=== PATIENT | male | born 1950 | race African-American/Black ===

== ENCOUNTER 2017-03-26 05:54 | Emergency (ER) | payer MEDICARE, MEDICAID, OTHER ==
[~2017-03-26] VITALS: Ht 180.3 cm; Wt 129.0 kg
[2017-03-26] MEDS ORDERED: KETOROLAC 30MG/ML VIAL IM ONE (07:15)
[2017-03-26] MEDS ORDERED: CYCLOBENZAPRINE 10MG TABLET PO ONE ×2 (07:15→07:45)
[2017-03-26 08:33] VITALS: BP 110/72
== END 2017-03-26 08:34 | disposition home or self-care (01) ==
LOC: ER 05:54
DX: G89.29 Other chronic pain (principal); K59.00 Constipation, unspecified; I10 Essential (primary) hypertension; R15.9 Full incontinence of feces; J45.909 Unspecified asthma, uncomplicated; Z85.46 Personal history of malignant neoplasm of prostate; Z88.0 Allergy status to penicillin; Z90.49 Acquired absence of other specified parts of digestive tract; Z98.890 Other specified postprocedural states
CPT/HCPCS: 74000; 96372; 99283; J1885; J7030

== ENCOUNTER 2018-04-21 21:40 | Inpatient (IN) | payer MEDICARE, MEDICAID ==
[~2018-04-21] VITALS: Ht 180.3 cm; Wt 127.0 kg
[~2018-04-21 21:40] MED LIST: ADVIAR; [UNRECOGNIZED DRUG - OTHER]
[2018-04-21] MEDS ORDERED: ASPIRIN 325MG EC TABLET PO ONE (22:15)
[2018-04-22] MEDS ORDERED: IOHEXOL-350 100 ML BOTTLE ONE
[2018-04-22 00:24] LABS: BASOPHILS % 0.2 % (0.0-2.0); HEMATOCRIT. 32.7 % (42.0-52.0); HEMOGLOBIN. 10.9 g/dL (14.0-18.0); LYMPHOCYTES % 16.4 % (20.0-50.0); MEAN CORPUSCULAR HEMOGLOBIN 29.5 pg (28.0-32.0); MEAN CORPUSCULAR VOLUME 88.3 fL (80.0-94.0); MEAN PLATELET VOLUME 6.9 fl (7.4-10.4); MONOCYTES % 8.8 % (2.0-8.0); NEUTROPHILS % 73.6 % (40.0-76.0); PLATELET 393 x1000/uL (130-400); RED CELL DISTRIBUTION WIDTH 14.8 % (11.6-14.6)
[2018-04-22 00:33] LABS: CHLORIDE 101 mEq/L (98-107)
[2018-04-22 00:40] LABS: D-DIMER 3.47 mg/L FEU (<0.50); PARTIAL THROMBOPLASTIN TIME 25.2 sec (23.4-31.0); PROTHROMBIN TIME 10.2 sec (9.1-11.1)
[2018-04-22] MEDS ORDERED: NITROGLYCERIN OINT 1GM/INCH UDPKT TD ONE (02:15)
[2018-04-22] MEDS ORDERED: FUROSEMIDE 40MG/4ML VIAL IV ONE (02:15)
[2018-04-22] MEDS ORDERED: DOCUSATE SODIUM 100MG CAPSULE PO PRN (02:30)
[2018-04-22] MEDS ORDERED: ACETAMINOPHEN 325MG TABLET PO PRN (02:30)
[2018-04-22] MEDS ORDERED: MORPHINE SULFATE 4 MG/ML CPJ (NOT FOR IM USE) IV PRN (02:30)
[2018-04-22] MEDS ORDERED: ONDANSETRON HCL 4MG/2ML VIAL IV PRN (02:30)
[2018-04-22] MEDS ORDERED: IPRATROPIUM/ALBUTEROL 0.5-3(2.5)MG/3ML NEB INH PRN (02:30)
[2018-04-22] MEDS ORDERED: CLONIDINE 0.1MG TABLET PO PRN (02:30)
[2018-04-22] MEDS ORDERED: ONDANSETRON 4MG ODT PO PRN (05:15)
[2018-04-22 05:36] VITALS: BP 119/69
[2018-04-22 08:00] VITALS: BP 159/79
[2018-04-22] MEDS: AMLODIPINE 10MG TABLET PO SCH (08:32)
[2018-04-22] MEDS: ENOXAPARIN 30MG/0.3ML SYR SUBCUT SCH ×2 (08:32→20:45)
[2018-04-22] MEDS ORDERED: ENOXAPARIN 40MG/0.4ML SYR SUBCUT SCH (09:00)
[2018-04-22 09:21] LABS: CREATINE KINASE 508 IU/L (39-308)
[2018-04-22 09:22] LABS: CREATINE KINASE MB FRACTION 5.9 ng/mL (0.5-3.6)
[2018-04-22 12:00] VITALS: BP 131/73
[2018-04-22 13:24] LABS: BG BASE EXCESS 6.1 mmol/L (-2.0-2.0); BG CARBOXYHEMOGLOBIN 0.8 % (0.5-1.5); BG FRACTION INSPIRED OXYGEN 21; BG HCO3 ACT 30.4 mmol/L (22.0-26.0); BG METHEMOGLOBIN 0.1 % (0.0-1.5); BG OXYHEMOGLOBIN 95.1 % (94.0-97.0); BG PCO2 42.8 mmHg (35.0-45.0); BG PH 7.469 (7.350-7.450); BG PO2 80.7 mmHg (75.0-100.0); BG SAMPLE SITE LEFT BRACHIAL; BG TOTAL HEMOGLOBIN 11.8 g/dL (12.0-18.0); BG VENT MODE ROOM AIR
[2018-04-22] MEDS: IPRATROPIUM/ALBUTEROL 0.5-3(2.5)MG/3ML NEB HHN SCH ×2 (15:34→21:34)
[2018-04-22 15:52] LABS: CREATINE KINASE 447 IU/L (39-308)
[2018-04-22 15:53] LABS: CREATINE KINASE MB FRACTION 4.9 ng/mL (0.5-3.6)
[2018-04-22 16:00] VITALS: BP 114/64
[2018-04-22] MEDS ORDERED: METR500T PO (16:33)
[2018-04-22] MEDS ORDERED: LEVO500T89 MT (16:33)
[2018-04-22] MEDS ORDERED: RANI300T4 MT (16:35)
[2018-04-22] MEDS ORDERED: AMLO10TA80 MT (16:35)
[2018-04-22] MEDS: MONTELUKAST SODIUM 10MG TABLET PO SCH (18:02)
[2018-04-22 20:00] VITALS: BP 137/85
[2018-04-22] MEDS: FAMOTIDINE 20MG TABLET PO SCH (20:44)
[2018-04-22] MEDS: BUDESONIDE 0.5MG/2ML NEB HHN SCH (21:33)
[2018-04-23] VITALS: BP 137/80
[2018-04-23] MEDS: IPRATROPIUM/ALBUTEROL 0.5-3(2.5)MG/3ML NEB HHN SCH ×5 (02:35→21:32)
[2018-04-23 04:00] VITALS: BP 149/79
[2018-04-23 06:50] LABS: BASOPHILS % 0.5 % (0.0-2.0); EOSINOPHILS % 1.4 % (0.0-5.0); HEMATOCRIT. 35.1 % (42.0-52.0); HEMOGLOBIN. 11.8 g/dL (14.0-18.0); LYMPHOCYTES % 16.4 % (20.0-50.0); MEAN CORPUSCULAR HEMOGLOBIN 29.9 pg (28.0-32.0); MEAN CORPUSCULAR VOLUME 88.9 fL (80.0-94.0); MEAN PLATELET VOLUME 7.2 fl (7.4-10.4); MONOCYTES % 6.9 % (2.0-8.0); NEUTROPHILS % 74.8 % (40.0-76.0); PLATELET 414 x1000/uL (130-400); RED BLOOD CELL COUNT 3.95 mill/uL (4.7-6.1); RED CELL DISTRIBUTION WIDTH 15.2 % (11.6-14.6)
[2018-04-23 07:01] LABS: CHLORIDE 100 mEq/L (98-107)
[2018-04-23 07:29] LABS: LDL CHOLESTEROL 63 mg/dL (5-100)
[2018-04-23 07:30] LABS: HDL CHOLESTEROL 33 mg/dL (40-59)
[2018-04-23 08:00] VITALS: BP 136/79
[2018-04-23] MEDS: FAMOTIDINE 20MG TABLET PO SCH ×2 (08:13→20:30)
[2018-04-23] MEDS: AMLODIPINE 10MG TABLET PO SCH (08:13)
[2018-04-23] MEDS: ENOXAPARIN 30MG/0.3ML SYR SUBCUT SCH ×2 (08:14→20:33)
[2018-04-23] MEDS: BUDESONIDE 0.5MG/2ML NEB HHN SCH ×2 (10:05→21:31)
[2018-04-23 10:13] LABS: BG BASE EXCESS 4.1 mmol/L (-2.0-2.0); BG CARBOXYHEMOGLOBIN 0.6 % (0.5-1.5); BG DEOXYHEMOGLOBIN 5.2 % (0.0-5.0); BG FRACTION INSPIRED OXYGEN 21; BG HCO3 ACT 27.9 mmol/L (22.0-26.0); BG METHEMOGLOBIN 0.2 % (0.0-1.5); BG OXYGEN SATURATION 94.8 % (92.0-98.5); BG PCO2 38.8 mmHg (35.0-45.0); BG PH 7.474 (7.350-7.450); BG PO2 72.2 mmHg (75.0-100.0); BG SAMPLE SITE RIGHT RADIAL; BG TOTAL HEMOGLOBIN 12.4 g/dL (12.0-18.0); BG VENT MODE ROOM AIR
[2018-04-23 11:46] LABS: T4 FREE 1.49 ng/dL (0.76-1.46)
[2018-04-23 12:00] VITALS: BP 130/62
[2018-04-23 16:00] VITALS: BP 128/65
[2018-04-23 16:01] LABS: CREATINE KINASE 262 IU/L (39-308)
[2018-04-23 16:02] LABS: CREATINE KINASE MB FRACTION 2.6 ng/mL (0.5-3.6)
[2018-04-23] MEDS: MONTELUKAST SODIUM 10MG TABLET PO SCH (17:11)
[2018-04-23] MEDS: HYDROCODONE/ACETAMINOPHEN 5/325MG TABLET PO PRN ×2 (17:11→22:35)
[2018-04-23 20:00] VITALS: BP 132/74
[2018-04-23 23:27] LABS: CREATINE KINASE 226 IU/L (39-308)
[2018-04-23 23:28] LABS: CREATINE KINASE MB FRACTION 2.6 ng/mL (0.5-3.6)
[2018-04-24] VITALS: BP 130/70
[2018-04-24] MEDS: IPRATROPIUM/ALBUTEROL 0.5-3(2.5)MG/3ML NEB HHN SCH ×2 (03:08→10:04)
[2018-04-24 04:00] VITALS: BP 118/79
[2018-04-24 07:00] LABS: CREATINE KINASE 196 IU/L (39-308)
[2018-04-24 07:01] LABS: CREATINE KINASE MB FRACTION 2.5 ng/mL (0.5-3.6)
[2018-04-24 08:00] VITALS: BP 126/83
[2018-04-24] MEDS: FAMOTIDINE 20MG TABLET PO SCH (09:10)
[2018-04-24] MEDS: ENOXAPARIN 30MG/0.3ML SYR SUBCUT SCH (09:13)
[2018-04-24] MEDS: AMLODIPINE 10MG TABLET PO SCH (09:13)
[2018-04-24] MEDS: BUDESONIDE 0.5MG/2ML NEB HHN SCH (10:03)
[2018-04-24 10:39] VITALS: BP 136/84
== END 2018-04-24 11:44 | disposition home or self-care (01) | DRG 189 ==
LOC: ER 21:40 → 6WST 04-22 01:10 → ENRESERV 04-22 04:02
PROVIDERS: ADMIT Hospitalist; ATTEND Hospitalist
DX: J96.00 Acute respiratory failure, unspecified whether with hypoxia or hypercapnia (principal); J45.901 Unspecified asthma with (acute) exacerbation; J90 Pleural effusion, not elsewhere classified; E66.9 Obesity, unspecified; I10 Essential (primary) hypertension; K21.9 Gastro-esophageal reflux disease without esophagitis; Z90.79 Acquired absence of other genital organ(s); Z85.46 Personal history of malignant neoplasm of prostate; Z82.49 Family history of ischemic heart disease and other diseases of the circulatory system; Z90.49 Acquired absence of other specified parts of digestive tract; Z93.3 Colostomy status; Z88.0 Allergy status to penicillin; Z68.39 Body mass index [BMI] 39.0-39.9, adult; Z79.899 Other long term (current) drug therapy
CPT/HCPCS: 36415; 36600; 71045; 71275; 80053; 80061; 82375; 82550; 82553; 82805; 83036; 83690; 83880; 84439; 84443; 84484; 85025; 85379; 85610; 85730; 86850; 86870; 86900; 93005; 93306; 93970; 94640; 96374; 99285; J1650; J1940; J7620; J7626; Q9967

== ENCOUNTER → 2018-05-05 | Outpatient (CLI) | payer MEDICARE, MEDICAID ==
[~2018-05-05] MED LIST changes: -ADVIAR; +AMLO10TA80 MT; +BARIUM SULFATE 450ML ORAL SUSP ONE; +IOHEXOL-300 50 ML BOTTLE IV ONE; +IOHEXOL-350 100 ML BOTTLE ONE; +LEVO500T89 MT; +METR500T PO; +RANI300T4 MT; -[UNRECOGNIZED DRUG - OTHER]
== END | disposition home or self-care (01) ==
LOC: CT 09:17
PROVIDERS: ATTEND Surgery
DX: K81.0 Acute cholecystitis (principal); E66.9 Obesity, unspecified; I10 Essential (primary) hypertension; Z85.46 Personal history of malignant neoplasm of prostate; R06.02 Shortness of breath; J44.9 Chronic obstructive pulmonary disease, unspecified; Z79.899 Other long term (current) drug therapy; Z90.49 Acquired absence of other specified parts of digestive tract; Z68.41 Body mass index [BMI] 40.0-44.9, adult; K21.9 Gastro-esophageal reflux disease without esophagitis; Z88.0 Allergy status to penicillin
CPT/HCPCS: 47531; 74177; Q9967

== ENCOUNTER → 2018-05-27 | Outpatient (CLI) | payer MEDICARE, MEDICAID ==
[~2018-05-27] MED LIST changes: -BARIUM SULFATE 450ML ORAL SUSP ONE; -IOHEXOL-300 50 ML BOTTLE IV ONE; -IOHEXOL-350 100 ML BOTTLE ONE
== END | disposition home or self-care (01) ==
LOC: RAD 13:01
PROVIDERS: ATTEND Family Medicine
DX: Z01.818 Encounter for other preprocedural examination (principal); K80.80 Other cholelithiasis without obstruction
CPT/HCPCS: 71045

== ENCOUNTER 2018-06-07 05:21 | Day surgery (SDC) | payer MEDICARE, MEDICAID ==
[~2018-06-07] VITALS: Ht 180.3 cm; Wt 127.5 kg
[2018-06-07] MEDS ORDERED: LACTATED RINGERS 1,000 ML IV SCH (05:45)
[2018-06-07 06:16] LABS: CLARITY URINE CLEAR (CLEAR); COLOR URINE YELLOW (YELLOW); KETONES URINE NEGATIVE (NEGATIVE); LEUKOCYTE ESTERASE URINE NEGATIVE (NEGATIVE); NITRITE URINE NEGATIVE (NEGATIVE); OCCULT BLOOD URINE NEGATIVE (NEGATIVE); PROTEIN URINE NEGATIVE (NEGATIVE); SPECIFIC GRAVITY URINE 1.014 (1.005-1.030); UROBILINOGEN URINE 0.2 E.U./dL (0.2-1.0)
[2018-06-07] MEDS ORDERED: BUPIVACAINE HCL 0.5% (5MG/ML) 50ML ONE (06:30)
[2018-06-07] MEDS ORDERED: SKIN ADHESIVE 0.7 GM EA TOP ONE ×3 (06:30→09:00)
[2018-06-07] MEDS ORDERED: CLINDAMYCIN 900 MG in DEXTROSE 5% WATER 50 ML IV SCH (07:00)
[2018-06-07] MEDS ORDERED: PROPOFOL 200MG/20ML VIAL IV ONE ×2 (07:03→08:14)
[2018-06-07] MEDS ORDERED: FENTANYL CITRATE/PF 50MCG/ML 5ML VIAL ONE (07:04)
[2018-06-07] MEDS ORDERED: GLYCOPYRROLATE 0.2 MG/ML 2ML VIAL ONE (07:05)
[2018-06-07] MEDS ORDERED: NEOSTIGMINE METHYLSULFATE 1MG/ML 10 ML VIAL ONE (07:06)
[2018-06-07] MEDS ORDERED: NAPR220T66 PO (07:56)
[2018-06-07] MEDS ORDERED: ONDANSETRON HCL 4MG/2ML INJ IV PRN (09:15)
[2018-06-07] MEDS ORDERED: FENTANYL CITRATE/PF 50MCG/ML 2ML VIAL IV PRN (09:15)
== END 2018-06-07 10:15 | disposition home or self-care (01) ==
LOC: OR 05:21
PROVIDERS: ATTEND Surgery
DX: K80.10 Calculus of gallbladder with chronic cholecystitis without obstruction (principal); J44.9 Chronic obstructive pulmonary disease, unspecified; I10 Essential (primary) hypertension; K21.9 Gastro-esophageal reflux disease without esophagitis; J45.909 Unspecified asthma, uncomplicated; E66.9 Obesity, unspecified; Z68.41 Body mass index [BMI] 40.0-44.9, adult; Z85.46 Personal history of malignant neoplasm of prostate; Z79.899 Other long term (current) drug therapy; Z90.49 Acquired absence of other specified parts of digestive tract; Z88.0 Allergy status to penicillin
CPT/HCPCS: 47562; 81003; 88300; 88304; G0168; J2710; J3010; J3490; J7120; J2704; J7060

== ENCOUNTER 2018-10-17 09:31 | Emergency (ER) | payer MEDICARE, MEDICAID, OTHER ==
[~2018-10-17] VITALS: Ht 180.3 cm; Wt 127.0 kg
[~2018-10-17 09:31] MED LIST changes: -LEVO500T89 MT; -METR500T PO; +NAPR220T66 PO
[2018-10-17 10:42] VITALS: BP 174/102
== END 2018-10-17 17:30 | disposition left against medical advice (07) ==
LOC: ER 09:52
DX: Z53.21 Procedure and treatment not carried out due to patient leaving prior to being seen by health care provider (principal)

== ENCOUNTER 2018-10-17 18:47 | Inpatient (IN) | payer MEDICARE, MEDICAID ==
[~2018-10-17] VITALS: Ht 180.3 cm; Wt 113.4 kg
[2018-10-17] MEDS ORDERED: ONDANSETRON HCL 4MG/2ML INJ IV STA (21:15)
[2018-10-17] MEDS ORDERED: ENALAPRIL 2.5MG/2ML VIAL 2ML IV ONE (21:15)
[2018-10-17 21:31] LABS: BASOPHILS % 0.4 % (0.0-2.0); CHLORIDE 105 mEq/L (98-107); EOSINOPHILS % 0.3 % (0.0-5.0); HEMATOCRIT. 47.6 % (42.0-52.0); HEMOGLOBIN. 15.9 g/dL (14.0-18.0); LYMPHOCYTES % 16.6 % (20.0-50.0); MEAN CORPUSCULAR HEMOGLOBIN 29.3 pg (28.0-32.0); MEAN CORPUSCULAR VOLUME 87.5 fL (80.0-94.0); MEAN PLATELET VOLUME 7.9 fl (7.4-10.4); MONOCYTES % 7.2 % (2.0-8.0); NEUTROPHILS % 75.5 % (40.0-76.0); PLATELET 279 x1000/uL (130-400); RED BLOOD CELL COUNT 5.44 mill/uL (4.7-6.1); RED CELL DISTRIBUTION WIDTH 14.4 % (11.6-14.6)
[2018-10-17 21:36] LABS: PARTIAL THROMBOPLASTIN TIME 25.7 sec (23.4-31.0)
[2018-10-17 21:37] LABS: ETHANOL BLOOD < 10 mg/dL
[2018-10-17] MEDS ORDERED: MECLIZINE 25MG TABLET PO ONE (22:30)
[2018-10-17] MEDS ORDERED: MAGNESIUM/ALUMINUM HYDROXIDE/SIMETHICONE 30ML UDC PO PRN (23:30)
[2018-10-17] MEDS ORDERED: LORAZEPAM 2MG/ML CPJ IV PRN (23:30)
[2018-10-17] MEDS ORDERED: IPRATROPIUM/ALBUTEROL 0.5-3(2.5)MG/3ML NEB INH PRN (23:30)
[2018-10-17] MEDS ORDERED: HYDROCODONE/ACETAMINOPHEN 10/325MG TABLET PO PRN (23:30)
[2018-10-17] MEDS ORDERED: CLONIDINE 0.1MG TABLET PO PRN (23:30)
[2018-10-17] MEDS ORDERED: DOCUSATE SODIUM 100MG CAPSULE PO PRN (23:30)
[2018-10-17] MEDS ORDERED: HYDRALAZINE 20MG/ML VIAL IV PRN (23:30)
[2018-10-17] MEDS ORDERED: HYDROMORPHONE HCL/PF 2MG/ML CPJ IV PRN (23:30)
[2018-10-17] MEDS ORDERED: DIPHENHYDRAMINE 50MG/ML VIAL IV PRN (23:30)
[2018-10-17] MEDS ORDERED: ONDANSETRON HCL 4MG/2ML INJ IV PRN (23:30)
[2018-10-17] MEDS ORDERED: GUAIFENESIN 200MG/10ML SUGAR FREE UDC PO PRN (23:30)
[2018-10-17] MEDS ORDERED: ACETAMINOPHEN 325MG TABLET PO PRN (23:30)
[2018-10-17] MEDS ORDERED: NA PHOS,M-B/NA PHOS,DI-BA ENEMA 118ML PR PRN (23:30)
[2018-10-18] VITALS (7 sets, daily range): BP systolic 126–160; BP diastolic 66–85
[2018-10-18] MEDS: ASPIRIN 81MG EC TABLET PO SCH (11:24)
[2018-10-18] MEDS: SODIUM CHLORIDE 0.9% INJ 3ML FLUSH IVF SCH ×2 (14:53→21:17)
[2018-10-18 15:25] LABS: BASOPHILS % 0.3 % (0.0-2.0); EOSINOPHILS % 1.9 % (0.0-5.0); HEMATOCRIT. 43.2 % (42.0-52.0); HEMOGLOBIN. 14.6 g/dL (14.0-18.0); LYMPHOCYTES % 39.7 % (20.0-50.0); MEAN CORPUSCULAR HEMOGLOBIN 29.5 pg (28.0-32.0); MEAN CORPUSCULAR VOLUME 87.4 fL (80.0-94.0); MEAN PLATELET VOLUME 7.7 fl (7.4-10.4); MONOCYTES % 10.7 % (2.0-8.0); NEUTROPHILS % 47.4 % (40.0-76.0); PLATELET 257 x1000/uL (130-400); RED BLOOD CELL COUNT 4.95 mill/uL (4.7-6.1)
[2018-10-18 15:47] LABS: CHLORIDE 104 mEq/L (98-107)
[2018-10-18 15:55] LABS: CREATINE KINASE 186 IU/L (39-308); LDL CHOLESTEROL 141 mg/dL (5-100)
[2018-10-18 15:57] LABS: CREATINE KINASE 187 IU/L (39-308); CREATINE KINASE MB FRACTION 1.4 ng/mL (0.5-3.6); HDL CHOLESTEROL 42 mg/dL (40-59)
[2018-10-18 15:58] LABS: T4 FREE 1.12 ng/dL (0.76-1.46)
[2018-10-18] MEDS ORDERED: INFLUENZA VIRUS VACCINE(AFLURIA) 0.5ML SYR IM ONE (19:15)
[2018-10-18] MEDS: ENOXAPARIN 30MG/0.3ML SYR SUBCUT SCH (21:16)
[2018-10-19 00:17] VITALS: BP 102/59
[2018-10-19 00:19] VITALS: BP 141/68
[2018-10-19 03:16] LABS: CLARITY URINE CLEAR (CLEAR); COLOR URINE YELLOW (YELLOW); KETONES URINE NEGATIVE (NEGATIVE); LEUKOCYTE ESTERASE URINE NEGATIVE (NEGATIVE); NITRITE URINE NEGATIVE (NEGATIVE); OCCULT BLOOD URINE NEGATIVE (NEGATIVE); PH URINE 5.5 (4.5-8.0); PROTEIN URINE NEGATIVE (NEGATIVE); UROBILINOGEN URINE 0.2 E.U./dL (0.2-1.0)
[2018-10-19 03:39] LABS: *AMPHETAMINES SCREEN URINE NEGATIVE (NEGATIVE); *BARBITURATES SCREEN URINE NEGATIVE (NEGATIVE); *BENZODIAZEPINES SCREEN URINE NEGATIVE (NEGATIVE); *COCAINE SCREEN URINE NEGATIVE (NEGATIVE); CANNABINOID URINE SCREEN PRESUMTIVE POSITIVE (NEGATIVE); METHADONE URINE SCREEN NEGATIVE (NEGATIVE); OPIATES URINE SCREEN NEGATIVE (NEGATIVE); PHENCYCLIDINE URINE SCREEN NEGATIVE (NEGATIVE)
[2018-10-19 04:00] VITALS: BP 119/68
[2018-10-19] MEDS: SODIUM CHLORIDE 0.9% INJ 3ML FLUSH IVF SCH (04:09)
[2018-10-19 08:00] VITALS: BP_SYST 152; BP_SYST 159; BP_DIAS 78; BP_DIAS 98
[2018-10-19] MEDS: ASPIRIN 81MG EC TABLET PO SCH (09:11)
[2018-10-19] MEDS: ENOXAPARIN 30MG/0.3ML SYR SUBCUT SCH (09:12)
[2018-10-19 09:30] VITALS: BP 152/78
== END 2018-10-19 10:27 | disposition home or self-care (01) | DRG 312 ==
LOC: ER 19:02 → 8WST 22:14 → EDBEDREQ 22:16 → EDBEDREQTM 22:16 → ENRESERV 10-18 07:55
PROVIDERS: ADMIT Internal Medicine; ATTEND Internal Medicine
DX: R55 Syncope and collapse (principal); I10 Essential (primary) hypertension; K21.9 Gastro-esophageal reflux disease without esophagitis; I16.0 Hypertensive urgency; J45.909 Unspecified asthma, uncomplicated; E11.9 Type 2 diabetes mellitus without complications; E78.5 Hyperlipidemia, unspecified; Z90.49 Acquired absence of other specified parts of digestive tract; Z85.89 Personal history of malignant neoplasm of other organs and systems; Z88.0 Allergy status to penicillin
CPT/HCPCS: 36415; 71045; 80061; 80305; 82550; 82553; 83036; 83735; 83880; 84439; 84443; 84484; 85379; 93005; 93306; 93880; 93970; 96374; 96375; 99285; J1650; J2405; J3490; J7050; J8597

== ENCOUNTER 2021-05-21 05:11 | Inpatient (IN) | payer MEDICARE, MEDICAID ==
[~2021-05-21] VITALS: Ht 180.3 cm; Wt 136.1 kg
[~2021-05-21 05:11] MED LIST changes: +FAMO20TA8 PO; +IBUP-1653 PO; +MULT-1234 PO
[2021-05-21 05:36] LABS: BASOPHILS % 0.7 % (0.0-2.0); EOSINOPHILS % 1.3 % (0.0-5.0); HEMATOCRIT. 47.4 % (42.0-52.0); HEMOGLOBIN. 16.2 g/dL (14.0-18.0); LYMPHOCYTES % 26.5 % (20.0-50.0); MEAN CORPUSCULAR HEMOGLOBIN 29.4 pg (28.0-32.0); MEAN CORPUSCULAR VOLUME 86.4 fL (80.0-94.0); MEAN PLATELET VOLUME 7.3 fl (7.4-10.4); MONOCYTES % 10.5 % (2.0-8.0); PLATELET 289 x1000/uL (130-400); RED BLOOD CELL COUNT 5.49 mill/uL (4.7-6.1)
[2021-05-21 05:39] LABS: CLARITY URINE CLEAR (CLEAR); COLOR URINE YELLOW (YELLOW); KETONES URINE NEGATIVE (NEGATIVE); LEUKOCYTE ESTERASE URINE NEGATIVE (NEGATIVE); NITRITE URINE NEGATIVE (NEGATIVE); OCCULT BLOOD URINE NEGATIVE (NEGATIVE); PROTEIN URINE TRACE (NEGATIVE); SPECIFIC GRAVITY URINE 1.023 (1.005-1.030)
[2021-05-21] MEDS ORDERED: LACTATED RINGERS 1,000 ML IV SCH (06:00)
[2021-05-21] MEDS ORDERED: FAMO20TA8 PO (06:05)
[2021-05-21] MEDS ORDERED: DEXAMETHASONE 4MG/ML 1ML VIAL ONE (07:49)
[2021-05-21] MEDS ORDERED: HYDROMORPHONE HCL/PF 2MG/ML (OR) ONE (07:49)
[2021-05-21] MEDS ORDERED: CLINDAMYCIN 900 MG PREMIX 50 ML IV ONE (07:54)
[2021-05-21] MEDS ORDERED: GLYCOPYRROLATE 0.2 MG/ML 2ML VIAL ONE (07:55)
[2021-05-21] MEDS ORDERED: PROPOFOL 200MG/20ML VIAL IV ONE (08:07)
[2021-05-21] MEDS ORDERED: EPHEDRINE SULFATE 50MG/ML VIAL ONE (08:10)
[2021-05-21] MEDS ORDERED: NALOXONE HCL 0.4 MG/ML 1ML VIAL ONE (08:39)
[2021-05-21] MEDS ORDERED: LABETALOL 5MG/ML SYR 20 MG/4 ML SYRINGE IV PRN (08:45)
[2021-05-21] MEDS ORDERED: MEPERIDINE HCL/PF 25MG/ML CPJ IV PRN (08:45)
[2021-05-21] MEDS ORDERED: ONDANSETRON HCL 4MG/2ML INJ IV PRN (08:45)
[2021-05-21] MEDS ORDERED: HYDROMORPHONE HCL/PF 2MG/ML CPJ IV PRN (08:45)
[2021-05-21] MEDS ORDERED: CLONIDINE 0.2MG TABLET PO PRN (15:15)
[2021-05-21] MEDS ORDERED: CLONIDINE 0.1MG TABLET PO PRN (15:25)
[2021-05-21] MEDS ORDERED: HYDROCODONE/ACETAMINOPHEN 10/325MG TABLET PO PRN (15:41)
[2021-05-21] MEDS ORDERED: HYDROCODONE/ACETAMINOPHEN 5/325MG TABLET PO PRN (15:41)
[2021-05-21] MEDS ORDERED: LORAZEPAM 1MG TABLET PO PRN (15:41)
[2021-05-21] MEDS ORDERED: MAGNESIUM HYDROXIDE 400MG/5ML 30ML UDC PO PRN (15:43)
[2021-05-21 17:20] VITALS: BP 190/94
[2021-05-21 18:00] VITALS: BP 190/94
[2021-05-21 19:06] LABS: HEMATOCRIT 42.3 % (42.0-52.0); HEMOGLOBIN 14.5 g/dL (14.0-18.0)
[2021-05-21 20:00] VITALS: BP 169/74
[2021-05-21] MEDS: CLONIDINE 0.1MG TABLET PO PRN (21:10)
[2021-05-21] MEDS ORDERED: NALOXONE HCL 0.4MG/ML VIAL IV PRN (22:15)
[2021-05-22] VITALS: BP 167/87
[2021-05-22 04:00] VITALS: BP 181/80
[2021-05-22] MEDS: CLONIDINE 0.1MG TABLET PO PRN (05:09)
[2021-05-22 07:15] LABS: BASOPHILS % 0.1 % (0.0-2.0); EOSINOPHILS % 0.2 % (0.0-5.0); HEMATOCRIT. 36.5 % (42.0-52.0); HEMOGLOBIN. 12.5 g/dL (14.0-18.0); LYMPHOCYTES % 20.2 % (20.0-50.0); MEAN CORPUSCULAR HEMOGLOBIN 29.4 pg (28.0-32.0); MEAN PLATELET VOLUME 7.6 fl (7.4-10.4); MONOCYTES % 10.2 % (2.0-8.0); NEUTROPHILS % 69.3 % (40.0-76.0); PLATELET 271 x1000/uL (130-400); RED BLOOD CELL COUNT 4.25 mill/uL (4.7-6.1); RED CELL DISTRIBUTION WIDTH 14.1 % (11.6-14.6)
[2021-05-22 07:32] LABS: CHLORIDE 103 mEq/L (98-107)
[2021-05-22 08:00] VITALS: BP 160/85
[2021-05-22] MEDS ORDERED: AMLODIPINE 10MG TABLET PO SCH (09:00)
[2021-05-22 13:29] VITALS: BP 146/74
== END 2021-05-22 14:20 | disposition home or self-care (01) | DRG 699 ==
LOC: OR 05:11 → 6EST 17:20
PROVIDERS: ADMIT Urology; ATTEND Urology
PROC: 0TJB8ZZ Inspection of Bladder, Via Natural or Artificial Opening Endoscopic (ICD-10-PCS; principal; 2021-05-21)
DX: N32.0 Bladder-neck obstruction (principal); N39.0 Urinary tract infection, site not specified; R31.9 Hematuria, unspecified; I10 Essential (primary) hypertension; Z20.822 Contact with and (suspected) exposure to COVID-19; Z88.0 Allergy status to penicillin
CPT/HCPCS: 36415; 71045; 80048; 81003; 85014; 85018; 85025; 87426; 93005; J1100; J1170; J2310; J2704; J3490